=== PATIENT | female | born 1975 | race Hispanic/Latino ===

== ENCOUNTER 2017-11-14 21:31 | Emergency (ER) | payer OTHER ==
[~2017-11-14 21:31] MED LIST: AMOXIL500 MG PO; AUGMENTIN 500M500 MG PO; BACTRIM DS 8001 TAB PO; CEPHALEXIN500 M3; CEPHALEXIN500 MG PO; DICLOFENAC SODI75 M2 PO; GARCINIA CAMBOGIA PO; IBU800 MG PO; IBUPROFEN800 M1 PO; MOTRIN800 MG PO; POLYTRIM O200 GTT/BO OPH; TYLENOL #31 TAB PO; ZOFRAN4 M1 PO
[2017-11-14 22:24] LABS: ABSOLUTE BASOPHIL COUNT 0 /CUMM (0.0-0.2); ABSOLUTE EOSINOPHIL COUNT 0.1 /CUMM (0.0-0.7); ABSOLUTE GRANULOCYTE CT 4.7 /CUMM (1.4-6.5); ABSOLUTE LYMPH COUNT 2.1 /CUMM (1.2-3.4); ABSOLUTE MONOCYTE COUNT 0.5 /CUMM (0.10-0.60); BASOPHIL % 0.3 % (0.0-2.0); EOSINOPHIL % 0.8 % (0-5); GRANULOCYTE % 63.8 % (42.2-75.2); HEMATOCRIT 40.4 % (37-47); MEAN CORPUSCULAR HGB 30.9 PG (27.0-31.0); MEAN CORPUSCULAR HGB CONC 34.5 G/DL (33.0-37.0); MEAN CORPUSCULAR VOLUME 89.6 FL (81.0-99.0); PLATELET COUNT 220 /CUMM (130-400); RBC DISTRIBUTION WIDTH 13.4 % (11.5-14.5); RED BLOOD CELL CT 4.51 /CUMM (4.20-5.40); WHITE BLOOD CELL COUNT 7.4 /CUMM (4.8-10.8)
--- NOTE | 2017-11-15 01:21 | RADIOLOGY REPORT ---
EXAMINATION: XR CHEST CLINICAL INFORMATION: Chest pain COMPARISON: 04/21/2010 TECHNIQUE: 2 views of the chest were obtained. FINDINGS: The lungs are well expanded. There is no focal consolidation, edema, or effusion. No pneumothorax. The cardiomediastinal silhouette is within normal limits. No acute osseous abnormality. IMPRESSION: No acute pulmonary findings.
--- NOTE | 2017-11-15 01:33 | ED CARDIAC/CP/PALPITATIONS ---
History of Present Illness General Chief Complaint: Chest Pain Stated Complaint: CHEST PAIN X 25MINS, FEEL FUNNY PER PT Source: patient, old records Exam Limitations: no limitations Vital Signs & Intake/Output Vital Signs & Intake/Output Vital Signs Date Time Temp Pulse Resp B/P B/P Pulse O2 O2 Flow FiO2 Mean Ox Delivery Rate 11/15 0030 97.6 87 18 145/77 98 Room Air 11/14 2339 Room Air 11/14 2142 98.0 91 20 167/80 97 Room Air ED Intake and Output 11/15 0000 11/14 1200 Intake Total 0 Output Total Balance 0 Intake, Oral 0 Allergies Coded Allergies: NO KNOWN ALLERGIES (12/08/15) Reconcile Medications Cephalexin (Unknown Strength) CAPSULE (Unknown Dose) UNKNOWN (Reported) Diclofenac Sodium 75 MG TABLET.DR 1 TAB PO BID PRN PAIN Ibuprofen 800 MG TABLET 1 TAB PO DAILY PRN PAIN (Reported) Triage Note: PT TO TRIAGE C/O CP UNDER L BREAST RADIATING INTO CENTER WELL L SIDE OF NECK PAIN FOR APPROX 25 MIN WHILE PT WAS DRIVING. DENIES SOB, DENIES CARDIAC HX. DENIES N/V. EKG COMPLETED. Triage Nurses Notes Reviewed? yes Onset: Just prior to arrival Duration: minute(s):, constant, continues in ED Timing: recent history Quality/Severity: severe, aching Location: epigastric Radiation: neck Activities at Onset: rest Prior Chest Pain/Card Workup: no prior cardiac workup Nitro Today/Relief: no nitro taken today Aspirin Today: no aspirin today Associated Symptoms: abdominal pain LMP (ages 10-50): unknown : No Patient currently breastfeeds: No HPI: Prior to admission patient complains of epigastric left-sided chest discomfort described as moderate to severe aching with left-sided neck discomfort ( preceding chest discomfort for several days). The pain is waxing and waning with nausea and rapid breathing. She denies fever chills vomiting diarrhea shortness of breath headache dysuria rash bleeding. Past History Travel History Traveled to [place] past 21 day No Medical History Any Pertinent Medical History? 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 No Review of Systems Review of Systems Constitutional: Reports: no symptoms. EENTM: Reports: no symptoms. Respiratory: Reports: no symptoms. Cardiovascular: Reports: see HPI, chest pain. GI: Reports: see HPI, abdominal pain, nausea. Genitourinary: Reports: no symptoms. Musculoskeletal: Reports: no symptoms. Skin: Reports: no symptoms. Neurological/Psychological: Reports: no symptoms. Hematologic/Endocrine: Reports: no symptoms. Immunologic/Allergic: Reports: no symptoms. All Other Systems: Reviewed and Negative Physical Exam Physical Exam General Appearance: well developed/nourished, alert, awake, anxious, moderate distress, obese Head: atraumatic, normal appearance Eyes: Bilateral: normal appearance, PERRL, EOMI. Ears, Nose, Throat: normal pharynx, normal ENT inspection, hearing grossly normal Neck: normal inspection, supple, full range of motion, tender lateral, no midline tenderness Respiratory: normal breath sounds, chest non-tender, no respiratory distress, quiet respiration, lungs clear Cardiovascular: regular rate/rhythm, normal peripheral pulses, norml femoral pulses equa Peripheral Pulses: 4+ carotid (R), 4+ carotid (L) Gastrointestinal: normal bowel sounds, soft, non-tender, no organomegaly Back: normal inspection, normal range of motion, no vertebral tenderness Extremities: normal inspection, normal capillary refill, normal range of motion, no edema Neurologic/Psych: no motor/sensory deficits, awake, alert, oriented x 3, normal gait, normal mood/affect, refueler II-XII nml as tested Reflexes: 2+: bicep (R), bicep (L). Skin: intact, normal color, warm/dry Lymphatic: no anterior cervical idania Core Measures ACS in differential dx? No CVA/TIA Diagnosis No Sepsis Present: No Sepsis Focused Exam Completed? No Progress Differential Diagnosis: costochondritis, hyperkalemia, pancreatitis, pneumonia, PUD/GERD Plan of Care: Orders Procedure Date/time Status Add-on Test (ER Only) 11/15 0017 Active Add-on Test (ER Only) 11/15 0006 Active TROPONIN LEVEL 11/15 2203 Complete LIPASE 05/30 2204 Complete COMPREHENSIVE METABOLIC PANEL 11/14 2142 Complete CBC WITHOUT DIFFERENTIAL 11/14 2142 Complete EKG 11/14 2132 Active Laboratory Tests 11/14/172203: Anion Gap 10, Estimated GFR > 60, BUN/Creatinine Ratio 10.0, Glucose 131 H, Calcium 9.2, Total Bilirubin 0.4, AST 17, ALT 28, Alkaline Phosphatase 70, Troponin I < 0.01, Total Protein 6.8, Albumin 4.1, Globulin 2.7, Albumin/ Globulin Ratio 1.5, Lipase 209, CBC w Diff NO MAN DIFF REQ, RBC 4.51, MCV 89.6, MCH 30.9, MCHC 34.5, RDW 13.4, MPV 9.0, Gran % 63.8, Lymphocytes % 28.6, Monocytes % 6.5, Eosinophils % 0.8, Basophils % 0.3, Absolute Granulocytes 4.7, Absolute Lymphocytes 2.1, Absolute Monocytes 0.5, Absolute Eosinophils 0.1, Absolute Basophils 0 Diagnostic Imaging: Viewed by Me: Radiology Read. Discussed w/RAD: Radiology Read. CXR Impression: No acute pulmonary findings. Initial ED EKG: normal axis, normal intervals, normal p-waves, normal QRS complex, normal sinus rhythm, no ST T wave changes Rhythm Strip: normal sinus rhythm Departure Departure Time of Disposition: 349 Disposition: HOME OR SELF CARE Condition: Stable Clinical Impression Primary Impression: Gastritis Secondary Impressions: Cervical myofascial pain syndrome Referrals: Teo Tony MD (PCP/Family) Departure Forms: Customer Survey General Discharge Information Prescriptions: Current Visit Scripts Famotidine (Pepcid) 1 TAB PO BID #60 TAB Hyoscyamine Sulfate (Levsin-Sl) 1-2 TAB SL Q4P PRN epigastric pain #30 TAB Baclofen 1 TAB PO TIDPRN PRN muscle spasm/strain #30 TAB Tramadol HCl (Ultram) 1 TAB PO Q6P PRN severe pain #30 TAB Critical Care Note Critical Care Note Critical Care Time: non-applicable
[2017-11-15 03:40] VITALS: BP 130/66
[2017-11-15] MEDS ORDERED: LEVSIN-SL0.125 MG SL (03:53)
[2017-11-15] MEDS ORDERED: PEPCID20 M1 PO (03:53)
[2017-11-15] MEDS ORDERED: ULTRAM50 M1 PO (03:53)
[2017-11-15] MEDS ORDERED: BACLOFEN10 M1 PO (03:53)
== END 2017-11-15 04:06 ==
LOC: ERH 21:31
PROVIDERS: Emergency Medicine
DX: K29.70 Gastritis, unspecified, without bleeding (principal); M54.2 Cervicalgia; R07.89 Other chest pain; R10.13 Epigastric pain
CPT/HCPCS: 71046; 93005; 93010; 96374; 96375; J0131; J2765

== ENCOUNTER 2018-03-03 13:22 | Emergency (ER) | payer OTHER ==
[~2018-03-03] VITALS: Ht 157.5 cm; Wt 76.7 kg
[~2018-03-03 13:22] MED LIST changes: +BACLOFEN10 M1 PO; +LEVSIN-SL0.125 MG SL; +PEPCID20 M1 PO; +ULTRAM50 M1 PO
[2018-03-03 14:04] LABS: ABSOLUTE BASOPHIL COUNT 0 /CUMM (0.0-0.2); ABSOLUTE EOSINOPHIL COUNT 0 /CUMM (0.0-0.7); ABSOLUTE GRANULOCYTE CT 2.8 /CUMM (1.4-6.5); ABSOLUTE LYMPH COUNT 0.8 /CUMM (1.2-3.4); ABSOLUTE MONOCYTE COUNT 0.3 /CUMM (0.10-0.60); BASOPHIL % 0.4 % (0.0-2.0); EOSINOPHIL % 0.1 % (0-5); GRANULOCYTE % 71.8 % (42.2-75.2); HEMATOCRIT 41.3 % (37-47); MEAN CORPUSCULAR HGB 31.4 PG (27.0-31.0); MEAN CORPUSCULAR HGB CONC 34.3 G/DL (33.0-37.0); MEAN CORPUSCULAR VOLUME 91.7 FL (81.0-99.0); MEAN PLATELET VOLUME 9.5 FL (7.4-10.4); PLATELET COUNT 236 /CUMM (130-400); RBC DISTRIBUTION WIDTH 14.2 % (11.5-14.5); RED BLOOD CELL CT 4.51 /CUMM (4.20-5.40); WHITE BLOOD CELL COUNT 3.9 /CUMM (4.8-10.8)
[2018-03-03 14:12] LABS: PT 12.3 SEC (9.4-12.5); PTT 30 SEC (25-37)
--- NOTE | 2018-03-03 17:28 | ED GI/GU/ABDOMINAL COMPLAINT ---
See Addendum History of Present Illness General Chief Complaint: Female Urogenital Problems Stated Complaint: VAGINAL BLEEDING X 10 DAYS, RIDLEY,DIZZY Source: patient Exam Limitations: no limitations Vital Signs & Intake/Output Vital Signs & Intake/Output Vital Signs Date Time Temp Pulse Resp B/P B/P Pulse O2 O2 Flow FiO2 Mean Ox Delivery Rate 03/03 2006 98.3 51 18 119/70 98 Room Air 03/03 1408 73 126/78 03/03 1329 97.7 86 20 156/85 98 Room Air Allergies Coded Allergies: NO KNOWN ALLERGIES (12/08/15) Reconcile Medications Baclofen 10 MG TABLET 1 TAB PO TIDPRN PRN muscle spasm/strain Cephalexin (Unknown Strength) CAPSULE (Unknown Dose) UNKNOWN (Reported) Cephalexin (Keflex) 500 MG CAPSULE 1 CAP PO 4 TIMES/DAY INFECTION Diclofenac Sodium 75 MG TABLET.DR 1 TAB PO BID PRN PAIN Famotidine (Pepcid) 20 MG TABLET 1 TAB PO BID gastritis Hyoscyamine Sulfate (Levsin-Sl) 0.125 MG TAB.SUBL 1-2 TAB SL Q4P PRN epigastric pain Ibuprofen 800 MG TABLET 1 TAB PO DAILY PRN PAIN (Reported) Ibuprofen 800 MG TABLET 1 TAB PO TID PRN pain Tramadol HCl (Ultram) 50 MG TABLET 1 TAB PO Q6P PRN severe pain Triage Note: PT TO ED C/O VAGINAL BLEEDING X 10 DAYS. C/O HEADACHES, LIGHTHEADED, DIZZY AND ANXIETY. HAS APPT WITH OB 03/11. Triage Nurses Notes Reviewed? yes ? n Is pt currently ? No HPI: Ms. Riggs is a 43 yo F wtih a pmhx sig for bartholin gland's cysts s/p de- rooting, GERD presents to the ED with a chief complaint of vaginal bleeding x 10 days. Patient with normal period about 14 days ago but then noted that it appears to restart 10 days ago and has noted increased bleeding. Patient is sexually active, no vaginal discharge or concern for STD. No clots or tissue. No FB's inserted into vagina. States she has used 1 pad/hr although this is a mix of pad vs tampon. Increasing dizziness, mild RIDLYE, cp and sob in anna setting on anxiety during this time as well. No fevers or chills. Mild nausea, no vomiting, Tolerating PO per her normal. Past History Travel History Traveled to [place] past 21 day No Medical History Any Pertinent Medical History? 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 No Sexual History Sexually Active Yes Review of Systems Review of Systems Constitutional: Reports: malaise. Denies: chills, fever. Comments No fevers, chills. No vomiting. Mild nausea +dizziness Mild RIDLEY Physical Exam Physical Exam General Appearance: no apparent distress, alert, awake, anxious, obese Head: atraumatic, normal appearance Eyes: Bilateral: normal appearance, normal inspection. Ears, Nose, Throat, Mouth: moist mucous membrane Neck: normal inspection Respiratory: normal breath sounds, chest non-tender Cardiovascular: regular rate/rhythm Gastrointestinal: soft, non-tender (mild luq ttp), distention, guarding, rebound , tenderness Pelvic: normal external exam, active bleeding (small amount of bleeding at os) Neurologic/Psych: no motor/sensory deficits, awake, alert, oriented x 3, normal gait Skin: intact Comments: Vaginal Exam (Performed by MADDY Solano as patient was more comfortable with a female) os close but with scant brigt red blood from os. Non-friable tissue. No lacerations or fbs. Core Measures ACS in differential dx? No Sepsis Present: No Sepsis Focused Exam Completed? No Progress Differential Diagnosis: cholecystitis, diverticulitis, ectopic , endometritis, ovarian cyst, ovarian torsion, UTI/pyelo Plan of Care: Orders Procedure Date/time Status EKG 03/03 2207 Active CHLAMYDIA-GC DNA PROBE 03/03 1852 Active MISTAKE 03/03 1327 Active URINE 03/03 1327 Complete URINALYSIS 03/03 1327 Complete PARTIAL THROMBOPLASTIN TIME 03/03 1327 Complete PROTHROMBIN TIME 03/03 1327 Complete COMPREHENSIVE METABOLIC PANEL 03/03 1327 Complete CBC WITHOUT DIFFERENTIAL 03/03 132 Complete TYPE & SCREEN (NOT X-MATCH) 03/03 132 Complete Laboratory Tests 03/03/18 1339: Anion Gap 12, Estimated GFR > 60, BUN/Creatinine Ratio 15.7, Glucose 118 H, Calcium 9.5, Total Bilirubin 0.6, AST 17, ALT 27, Alkaline Phosphatase 69, Total Protein 6.8, Albumin 4.4, Globulin 2.4, Albumin/Globulin Ratio 1.8, PT 12.3, INR 1.13, APTT 30, CBC w Diff NO MAN DIFF REQ, RBC 4.51, MCV 91.7, MCH 31.4 H, MCHC 34.3, RDW 14.2, MPV 9.5, Gran % 71.8, Lymphocytes % 21.2, Monocytes % 6.5, Eosinophils % 0.1, Basophils % 0.4, Absolute Granulocytes 2.8, Absolute Lymphocytes 0.8 L, Absolute Monocytes 0.3, Absolute Eosinophils 0, Absolute Basophils 0, Urine Color BLDY H, Urine Clarity CLDY H, Urine pH 5.0, Ur Specific [place] >= 1.030, Urine Protein 100 H, Urine Ketones 15 H, Urine Nitrite POS H, Urine Bilirubin NEG, Urine Urobilinogen 1.0, Ur Leukocyte Esterase MOD H, Ur Microscopic SEDIMENT EXAMINED, Urine RBC PACKD H, Urine WBC 5-10 H, Ur Epithelial Cells OCCAS, Urine Bacteria FEW H, Micro UA Comment MORE INFO: H, Urine Hemoglobin LARGE H, Urine Glucose NEG, Urine Test NEGATIVE Microbiology 03/03 2255 URINE ROUT: Urine Culture - CAN Cancelled: SPECIMEN NEVER RECEIVED 03/03 1339 URINE ROUT: GC DNA Probe - RECD 03/03 1339 URINE ROUT: Chlamydia DNA Probe (CHRISTIAN) - RECD Initial ED EKG: normal axis, normal intervals, normal sinus rhythm, no ST T wave changes Comments: This pleasent 43 yo F with chief complaint of vaginal bledeing x 10 days, worsening in nature with associated headache, anxiety attacks that bring on cp and sob, and dizziness. vaginal exam as above with what appears to be uterine bleeding. No acute findings on TVUS to suggest readon for bleed or mild abdominal pain and cramps. Concern cp and EKGH- EKG wnl and unchanged from prior. Given that this was in setting of anxiety, very low liklihood of cardiac pathology. No urinary sx but with UA suggestive of UTI. Given diffuse sx, will treat patient as pyelonephritis with recommendation she follow up with PCP. Spoke wtih Dr. Ding about case, including history and physical exam findings. Given patient is very HDS and feels better symptomatically here after PO re-hydration, will have patient follow up tomorrow in clinic. Patient given phone and address, they will call. Concerning abdominal pain, tenderness had resolved by end of stay without intervention. Likely AP from pyelo at this time. Areas of tenderness were largely cofnined to LUQ, furher decreasing concern. Spoke to patient about low liklihood of yield on CT scan for further investigation and she expressed understanding. Given strict return precuations for worsening abdominal pain, nausea or vomiting. Of note, patient tolerated PO in her room. Departure Departure Disposition: HOME OR SELF CARE Condition: Stable Clinical Impression Primary Impression: UTI (urinary tract infection) Secondary Impressions: Dysfunctional uterine bleeding Referrals: Teo Tony MD (PCP/Family) Departure Forms: Customer Survey General Discharge Information Prescriptions: Current Visit Scripts Cephalexin (Keflex) 1 CAP PO 4 TIMES/DAY #40 CAP Ibuprofen 1 TAB PO TID PRN pain #12 TAB
--- NOTE | 2018-03-03 18:30 | ULTRASOUND REPORT ---
EXAMINATION: ULTRASOUND PELVIC, COMPLETE CLINICAL INFORMATION: Vaginal bleeding. Last menstrual period 02/04/2018 COMPARISON: CT abdomen pelvis 06/28/2009, ultrasound 06/09/2009 TECHNIQUE: Transabdominal and transvaginal imaging was performed. FINDINGS: The uterus is anteverted of normal size and echogenicity measuring 10.6 x 5.2 x 6.6 cm. A regular homogeneous endometrium is identified measuring 0.5 cm. The cervical length is 3.2 cm. Multiple nabothian cysts are seen, the largest of which measures 1.3 x 0.9 x 1.3 cm. Both ovaries are of normal size and echogenicity. The right measures 3.2 x 1.3 x 2.1 cm for a volume of 6.0 mL. The left measures 3.5 x 1.7 x 2.2 cm for a volume of 6.8 mL. There is a right follicular cyst measuring 1.2 x 0.8 x 1.1 cm. Intact arterial waveforms are seen bilaterally. There is no pelvic free fluid. IMPRESSION: No acute abnormality within the female pelvis. Right follicular cyst is within normal limits. Multiple nabothian cysts.
[2018-03-03 20:06] VITALS: BP 119/70
[2018-03-03] MEDS ORDERED: KEFLEX500 M1 PO (21:36)
[2018-03-03] MEDS ORDERED: IBUPROFEN800 M1 PO (21:37)
== END 2018-03-03 22:25 ==
LOC: ERH 13:22
PROVIDERS: Physician Assistant Medical
DX: N39.0 Urinary tract infection, site not specified (principal); N93.8 Other specified abnormal uterine and vaginal bleeding
CPT/HCPCS: 81001; 81025; 87086; 87491; 87591; 93005; 93010; 96374; J0696

== ENCOUNTER 2018-03-06 21:47 | Emergency (ER) | payer OTHER ==
[~2018-03-06 21:47] MED LIST changes: +KEFLEX500 M1 PO
[2018-03-06 22:14] LABS: ABSOLUTE BASOPHIL COUNT 0 /CUMM (0.0-0.2); ABSOLUTE EOSINOPHIL COUNT 0 /CUMM (0.0-0.7); ABSOLUTE GRANULOCYTE CT 3.3 /CUMM (1.4-6.5); ABSOLUTE LYMPH COUNT 1.7 /CUMM (1.2-3.4); ABSOLUTE MONOCYTE COUNT 0.5 /CUMM (0.10-0.60); BASOPHIL % 0.7 % (0.0-2.0); EOSINOPHIL % 0.7 % (0-5); GRANULOCYTE % 59.7 % (42.2-75.2); HEMATOCRIT 40.5 % (37-47); MEAN CORPUSCULAR HGB 31.3 PG (27.0-31.0); MEAN CORPUSCULAR HGB CONC 34.3 G/DL (33.0-37.0); MEAN CORPUSCULAR VOLUME 91.4 FL (81.0-99.0); MEAN PLATELET VOLUME 9.1 FL (7.4-10.4); PLATELET COUNT 240 /CUMM (130-400); RBC DISTRIBUTION WIDTH 13.8 % (11.5-14.5); RED BLOOD CELL CT 4.43 /CUMM (4.20-5.40); WHITE BLOOD CELL COUNT 5.5 /CUMM (4.8-10.8)
--- NOTE | 2018-03-07 01:54 | ED GI/GU/ABDOMINAL COMPLAINT ---
History of Present Illness General Chief Complaint: Female Urogenital Problems Stated Complaint: "VAGINAL BLEEDING X 12 DAYS" PER PT Source: patient, old records Exam Limitations: no limitations Vital Signs & Intake/Output Vital Signs & Intake/Output Vital Signs Date Time Temp Pulse Resp B/P B/P Pulse O2 O2 Flow FiO2 Mean Ox Delivery Rate 03/07 0526 98.3 64 18 104/60 99 Room Air 03/07 0202 Room Air 03/06 2156 97.2 60 17 136/84 99 Room Air Allergies Coded Allergies: NO KNOWN ALLERGIES (12/08/15) Reconcile Medications Baclofen 10 MG TABLET 1 TAB PO TIDPRN PRN muscle spasm/strain Cephalexin (Unknown Strength) CAPSULE (Unknown Dose) UNKNOWN (Reported) Cephalexin (Keflex) 500 MG CAPSULE 1 CAP PO 4 TIMES/DAY INFECTION Diclofenac Sodium 75 MG TABLET.DR 1 TAB PO BID PRN PAIN Famotidine (Pepcid) 20 MG TABLET 1 TAB PO BID gastritis Hyoscyamine Sulfate (Levsin-Sl) 0.125 MG TAB.SUBL 1-2 TAB SL Q4P PRN epigastric pain Ibuprofen 800 MG TABLET 1 TAB PO DAILY PRN PAIN (Reported) Ibuprofen 800 MG TABLET 1 TAB PO TID PRN pain Tramadol HCl (Ultram) 50 MG TABLET 1 TAB PO Q6P PRN severe pain Triage Note: PT TO ED WITH CONTINUED HEAVY VAGINAL BLEEDING X 12 DAYS. SEEN FOR SAME THIS PAST SUNDAY. SAW OB ON SUNDAY WHO PLANS TO START HORMONE THERAPY. STATES BLEEDING HAS DECREASED SLIGHTLY HOWEVER IS FEELING WEAK, DIZZY AND "BOTH LEGS ARE NUMB." Triage Nurses Notes Reviewed? yes LMP (ages 10-50): date ([id number]) ? n Is pt currently ? No Onset: Last week Duration: week(s):, constant, continues in ED Timing: recent history Quality/Severity: moderate Location: vaginal Radiation: no radiation Activities at Onset: rest Prior Abdominal Problems: similar symptoms Past Sexual History: Unobtainable at this time No Modifying Factors: none HPI: 12 days prior to admission patient had vaginal bleeding that has continued. She was seen in the emergency department and referred to gynecology who offered her hormones to stop her bleeding which she declined secondary to side effects. She presents with continued bleeding difficulty concentrating fatigue. She denies fever chills nausea vomiting diarrhea abdominal pain chest pain shortness breath headache dysuria rash. Past History Travel History Traveled to [place] past day No Medical History Any Pertinent Medical History? 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 No Review of Systems Review of Systems Constitutional: Reports: see HPI, malaise. EENTM: Reports: no symptoms. Respiratory: Reports: no symptoms. Cardiovascular: Reports: no symptoms. GI: Reports: no symptoms. Genitourinary: Reports: see HPI. Musculoskeletal: Reports: no symptoms. Skin: Reports: no symptoms. Neurological/Psychological: Reports: no symptoms. Hematologic/Endocrine: Reports: no symptoms. Immunologic/Allergic: Reports: no symptoms. All Other Systems: Reviewed and Negative Physical Exam Physical Exam General Appearance: well developed/nourished, alert, awake, anxious, mild distress, obese Head: atraumatic, normal appearance Eyes: Bilateral: normal appearance, PERRL, EOMI, normal inspection. Ears, Nose, Throat, Mouth: hearing grossly normal, moist mucous membrane Neck: normal inspection, supple, full range of motion, normal alignment Respiratory: normal breath sounds, chest non-tender, no respiratory distress, quiet respiration, lungs clear Cardiovascular: regular rate/rhythm, normal peripheral pulses, norml femoral pulses equa Peripheral Pulses: 4+ carotid (R), 4+ carotid (L) Gastrointestinal: normal bowel sounds, soft, non-tender, no organomegaly Back: normal inspection, normal range of motion, no vertebral tenderness Extremities: normal range of motion, no ligament instability Neurologic/Psych: no motor/sensory deficits, awake, alert, oriented x 3, normal gait, normal mood/affect, respiratory practitioner II-XII nml as tested Skin: intact, normal color, warm/dry Core Measures ACS in differential dx? No Sepsis Present: No Sepsis Focused Exam Completed? No Progress Differential Diagnosis: Dysfunctional uterine bleeding Plan of Care: Orders Procedure Date/time Status URINE 03/06 2201 Complete URINALYSIS 03/06 2201 Complete COMPREHENSIVE METABOLIC PANEL 03/06 2201 Complete CBC WITHOUT DIFFERENTIAL 03/06 2201 Complete Laboratory Tests 03/06/182212: Urinalysis HEAVY H, Urine Color YEL, Urine Clarity HAZY H, Urine pH 6.0, Ur Specific [place] >= 1.030, Urine Protein TRACE H, Urine Ketones >=80, Urine Nitrite NEG, Urine Bilirubin NEG@ICTO, Urine Urobilinogen 0.2, Ur Leukocyte Esterase NEG, Ur Microscopic SEDIMENT EXAMINED, Urine RBC 1-3, Urine WBC 1-3 H, Ur Epithelial Cells MOD H, Urine Crystals 1+ CA OX H, Urine Bacteria FEW H, Urine Mucus MANY H, Urine Hemoglobin NEG, Urine Glucose NEG, Urine Test NEGATIVE 03/06/182206: Anion Gap 10, Estimated GFR > 60, BUN/Creatinine Ratio 14.3, Glucose 100 H, Calcium 9.7, Total Bilirubin 0.8, AST 20, ALT 33, Alkaline Phosphatase 78, Total Protein 7.2, Albumin 4.6, Globulin 2.6, Albumin/Globulin Ratio 1.8, CBC w Diff NO MAN DIFF REQ, RBC 4.43, MCV 91.4, MCH 31.3 H, MCHC 34.3, RDW 13.8, MPV 9.1, Gran % 59.7, Lymphocytes % 30.3, Monocytes % 8.6, Eosinophils % 0.7, Basophils % 0.7, Absolute Granulocytes 3.3, Absolute Lymphocytes 1.7, Absolute Monocytes 0.5 , Absolute Eosinophils 0, Absolute Basophils 0 Initial ED EKG: none Departure Departure Disposition: HOME OR SELF CARE Condition: Stable Clinical Impression Primary Impression: Dysfunctional uterine bleeding Referrals: Teo Tony MD (PCP/Family) Additional Instructions: 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 Departure Forms: Customer Survey General Discharge Information
[2018-03-07 05:26] VITALS: BP 104/60
== END 2018-03-07 05:38 ==
LOC: ERH 21:47
PROVIDERS: Emergency Medicine
DX: N93.8 Other specified abnormal uterine and vaginal bleeding (principal); G43.909 Migraine, unspecified, not intractable, without status migrainosus; F41.9 Anxiety disorder, unspecified
CPT/HCPCS: 81001; 81025; J0131